=== PATIENT | female | born 1980 | race Hispanic/Latino ===

== ENCOUNTER 2017-09-22 18:02 | Emergency (ER) | payer MEDICARE, MEDICAID ==
[2017-09-22 18:02] VITALS: BMI 38.9
[2017-09-22 18:51] VITALS: RESP 18
--- NOTE | 2017-09-22 19:08 | ED PDOC ---
Arrival/HPI <Yobany Argueta - Last Filed: 09/22/17 22:16> - General Historian: Patient - History of Present Illness Time/Duration: Other (see hpi) Context: Home <CokerAna del cidim P - Last Filed: 09/24/17 17:52> - General Chief Complaint: Shortness Of Breath Time Seen by Provider: 09/22/17 18:24 - History of Present Illness Narrative History of Present Illness (Text): 09/22/17 19:08 This 36 yo female with pmh GERD, COPD/asthma, presents to this ED c/o mid- sternum CP x 3 hours. Patient stated pain worsen with deep inspiration. Patient denies SOB, fever, leg swelling, calf pain, recent travel, recent surgery, blood disorder, weakness, or abnormal gait. PERC negative for PE (CokerAna del cidim P) Past Medical History - Provider Review Nursing Documentation Reviewed: Yes - Cardiac Hx Cardiac Disorders: No - Pulmonary Hx Respiratory Disorders: Yes Hx Asthma: Yes - Neurological Hx Neurological Disorder: No - HEENT Hx HEENT Disorder: No - Renal Hx Renal Disorder: No - Endocrine/Metabolic Hx Endocrine Disorders: No - Hematological/Oncological Hx Blood Disorders: No - Integumentary Hx Dermatological Disorder: No - Musculoskeletal/Rheumatological Hx Musculoskeletal Disorders: No - Gastrointestinal Hx Gastrointestinal Disorders: Yes Hx Gastroesophageal Reflux: Yes - Genitourinary/Gynecological Hx Genitourinary Disorders: No - Psychiatric Hx Psychophysiologic Disorder: No Hx Substance Use: No - Anesthesia Hx Anesthesia: No Hx Anesthesia Reactions: No Hx Malignant Hyperthermia: No <Coker,Nahim P - Last Filed: 09/24/17 17:52> Family/Social History - Physician Review Nursing Documentation Reviewed: Yes Family/Social History: Other (noncontributory) Smoking Status: Never Smoked Hx Alcohol Use: No Hx Substance Use: No <Coker,Nahim P - Last Filed: 09/24/17 17:52> Allergies/Home Meds <Yobany Argueta - Last Filed: 09/22/17 22:16> <CokerNahim P - Last Filed: 09/24/17 17:52> Allergies/Adverse Reactions: Allergies No Known Allergies Allergy (Verified 09/22/17 18:26) Home Medications: Home Meds Medication Instructions Recorded Confirmed Dexlansoprazole [Dexilant] 60 mg PO DAILY 09/21/16 07/02/18 Montelukast [Singulair] 10 mg PO DAILY 12/13/15 09/22/17 Fluticasone/Salmeterol 250/50 1 puff INH DAILY 09/22/17 09/22/17 [Advair Diskus 250/50] Review of Systems - Review of Systems Constitutional: Normal. absent: Fatigue, Weight Change, Fevers, Night Sweats Eyes: Normal ENT: Normal Respiratory: absent: SOB, Cough, Sputum, Wheezing Cardiovascular: Chest Pain. absent: Palpitations, Edema, Calf Pain, BELLO, Orthopnea, Syncope Gastrointestinal: Normal. absent: Abdominal Pain, Nausea, Vomiting Genitourinary Female: Normal Musculoskeletal: Normal Skin: Normal Neurological: Normal Endocrine: Normal Hemo/Lymphatic: Normal Psychiatric: Normal <Coker,Nah P - Last Filed: 09/24/17 17:52> Physical Exam Temperature: Afebrile Blood Pressure: Normal Pulse: Regular Respiratory Rate: Normal Appearance: Positive for: Well-Appearing, Non-Toxic, Comfortable Pain Distress: None Mental Status: Positive for: Alert and Oriented X 3 - Systems Exam Head: Present: Atraumatic, Normocephalic Pupils: Present: PERRL Extroacular Muscles: Present: EOMI Conjunctiva: Present: Normal Mouth: Present: Moist Mucous Membranes Neck: Present: Normal Range of Motion Respiratory/Chest: Present: Clear to Auscultation, Good Air Exchange. No: Respiratory Distress, Accessory Muscle Use, Wheezes, Retracting, Rhonchi Cardiovascular: Present: Regular Rate and Rhythm, Normal S1, S2. No: Murmurs Abdomen: No: Tenderness, Distention, Peritoneal Signs Back: Present: Normal Inspection Upper Extremity: Present: Normal Inspection. No: Cyanosis, Edema Lower Extremity: Present: Normal Inspection. No: Edema Neurological: Present: GCS=15, CN II-XII Intact, Speech Normal Skin: Present: Warm, Dry, Normal Color. No: Rashes Psychiatric: Present: Alert, Oriented x 3, Normal Insight, Normal Concentration <Coker,Nah P - Last Filed: 09/24/17 17:52> Vital Signs Temp Pulse Resp BP Pulse Ox 09/23/17 00:59 98.0 F 80 18 113/67 97 09/22/17 22:00 79 18 113/68 96 07/02/18 20:42 85 18 111/65 96 09/22/17 18:50 98.1 F 89 18 109/61 95 09/22/17 18:33 21 95 Medical Decision Making <Yobany Argueta - Last Filed: 09/22/17 22:16> Re-evaluation Time: 00:34 Reassessment Condition: Re-examined, Improved - Lab Interpretations I have reviewed the lab results: Yes Interpretation: No clinic. lab abnormalty <Antonino Coker - Last Filed: 09/24/17 17:52> ED Course and Treatment: 09/23/17 00:33 Patient feels better. Patient was recommended to f/u pmd, and private healthcare administrator for further evaluation. Troponin x 2 were negative. Re-evaluation. Patient feels better. Discussed results and plan with patient who expresses understanding. All questions answered and there is agreement with the plan to discharge home with instructions. Patient stable for discharge. Return if symptoms persist or worsen. (Antonino Ckoer) - Lab Interpretations Lab Results: 09/22/17 19:20 09/22/17 19:20 Lab Results 09/22/17 23:26: Troponin I < 0.01 09/22/17 20:07: Urine Opiates Screen Negative, Urine Methadone Screen Negative, Ur Barbiturates Screen Negative, Ur Phencyclidine Scrn Negative, Ur Amphetamines Screen Negative, U Benzodiazepines Scrn Negative, U Oth Cocaine Metabols Negative, U Cannabinoids Screen Negative 09/22/17 20:07: Urine Color Yellow, Urine Appearance Sl cloudy, Urine pH 6.5, Ur Specific [place] 1.015, Urine Protein Negative, Urine Glucose (UA) Negative, Urine Ketones Negative, Urine Blood Negative, Urine Nitrate Negative, Urine Bilirubin Negative, Urine Urobilinogen 0.2, Ur Leukocyte Esterase Negative 09/22/17 19:20: Sodium 141, Potassium 4.1, Chloride 102, Carbon Dioxide 26, Anion Gap 17, BUN 20, Creatinine 0.7, Est GFR ( Amer) > 60, Est GFR (Non- Af Amer) > 60, Random Glucose 98, Calcium 9.4, Total Bilirubin 0.3, AST 26, ALT 23, Alkaline Phosphatase 62, Lactate Dehydrogenase 460, Total Creatine Kinase < 20 L, Troponin I < 0.01, Total Protein 7.8, Albumin 4.2, Globulin 3.6, Albumin/ Globulin Ratio 1.2, Lipase 102 09/22/17 19:20: WBC 8.3 D, RBC 4.14, Hgb 12.5, Hct 36.8, MCV 88.9, MCH 30.2, MCHC 34.0, RDW 13.4, Plt Count 374, MPV 10.7, Gran % 77.5 H, Lymph % (Auto) 10.8 L, [place] % (Auto) 10.0 H, Eos % (Auto) 1.1 L, Baso % (Auto) 0.6, Gran # 6.43 , Lymph # (Auto) 0.9 L, [place] # (Auto) 0.8 H, Eos # (Auto) 0.1, Baso # (Auto) 0.05 - RAD Interpretation Radiology Orders: 09/22/17 19:11 CHEST TWO VIEWS (PA/LAT) [RAD] Stat - Medication Orders Current Medication Orders: Discontinued Medications Al Hydrox/Mg Hydrox/Simethicone (Maalox Plus 30 Ml) 30 ml PO STAT STA Stop: 09/22/17 22:18 Last Admin: 09/22/17 23:07 Dose: 30 ml Belladonna/Phenobarbital ( Elixir) 5 ml PO STAT STA Stop: 09/22/17 22:19 Last Admin: 09/22/17 23:07 Dose: 5 ml Sodium Chloride (Sodium Chloride 0.9%) 1,000 mls @ 999 mls/hr IV .Q1H1M STA Stop: 09/22/17 20:12 Last Admin: 09/22/17 19:30 Dose: 999 mls/hr eMAR Start Stop Document 09/22/17 19:30 GMI (Rec: 09/22/17 19:31 GMI [facility] [email or web address]) Intravenous Solution Start Date 09/22/17 Start Time 19:31 Ketorolac Tromethamine (Toradol) 15 mg IVP STAT STA Stop: 09/22/17 19:13 Last Admin: 09/22/17 20:17 Dose: 15 mg MAR Pain Assessment Document 09/22/17 20:17 SURESH (Rec: 09/22/17 20:17 SURESH [id number]) Pain Reassessment Is this a pain reassessment? Yes Presence of Pain Presence of Pain Yes Pain Scale Used Pain Scale Used Numeric Location Pain Location Body Site Chest Description Description Sharp Intensity of Pain at present 8 IVP Administration Document 09/22/17 20:17 SURESH (Rec: 09/22/17 20:17 SURESH [id number]) Charges for Administration # of IVP Administrations 1 Re-Assess: FRANCIA Pain Assessment Document 09/22/17 21:17 LA (Rec: 09/22/17 23:08 LA [id number]) Pain Reassessment Is this a pain reassessment? Yes Sleep Is patient sleeping during reassessment? No Presence of Pain Presence of Pain No - PA / [employer] / Resident Statement /DO has reviewed & agrees with the documentation as recorded. / has examined the patient and agrees with the treatment plan. <Yobany Argueta - Last Filed: 09/22/17 22:16> Disposition/Present on Arrival <Yobany Argueta - Last Filed: 09/22/17 22:16> - Present on Arrival Any Indicators Present on Arrival: No History of DVT/PE: No History of Uncontrolled Diabetes: No Urinary Catheter: No History of Decub. Ulcer: No History Surgical Site Infection Following: None - Disposition Have Diagnosis and Disposition been Completed?: Yes Disposition Time: 00:35 Patient Plan: Discharge <Antonino Coker - Last Filed: 09/24/17 17:52> - Disposition Diagnosis: Non-cardiac chest pain Disposition: HOME/ ROUTINE Condition: IMPROVED Discharge Instructions (ExitCare): Chest Pain That Is Not Caused by the Heart ( [place]) Additional Instructions: Call private doctor for follow up visit in 1-2 days. Take medication as instructed. Return to emergency if symptoms return or worsen Prescriptions: Famotidine [Pepcid] 40 mg PO DAILY #10 tablet Ibuprofen [Motrin] 400 mg PO Q8H PRN #20 tab PRN Reason: Pain, Severe (8-10) Referrals: Yobany Ambrosio MD [Primary Care Provider] - Follow up with primary Karley Watt MD [Staff Provider] - Follow up with primary Forms: [employer] ([place]), WORK NOTE
[2017-09-22] MEDS ORDERED: Sodium Chloride 0.9% 1,000 ML IV STA (19:12)
[2017-09-22 20:00] LABS: ALB/GLOB RATIO 1.2 (1.1-1.8); ALBUMIN 4.2 g/dL (3.0-4.8); BASO # 0.05 K/mm3 (0.0-2.0); BASO % 0.6 % (0.0-3.0); CALCIUM 9.4 mg/dL (8.4-10.5); EOS # 0.1 (0.0-0.7); EOS % 1.1 % (1.5-5.0); GFR AFRICAN-AMERICAN > 60; GFR NON-AFRICAN AMERICAN > 60; GRAN # 6.43 (1.4-6.5); GRAN % 77.5 % (50.0-68.0); HEMOGLOBIN 12.5 g/dL (12.0-16.0); LIPASE 102 U/L (23-300); LYMPH # 0.9 (1.2-3.4); LYMPH % 10.8 % (22.0-35.0); MEAN CELL VOLUME 88.9 fl (80.0-105.0); MEAN CORPUSCULAR HEMOGLOBIN 30.2 pg (25.0-35.0); MEAN PLATELET VOLUME 10.7 fl (7.0-11.0); MONO # 0.8 (0.1-0.6); RBC 4.14 10^6/uL (3.5-6.1); RED CELL DISTRIBUTION WIDTH 13.4 % (11.5-14.5); WHITE BLOOD COUNT 8.3 10^3/ul (4.5-11.0)
[2017-09-22 20:12] LABS: TROPONIN I < 0.01 ng/mL
[2017-09-22 20:17] LABS: PH,URINE 6.5 (4.7-8.0); URINE BILIRUBIN NEGATIVE (NEGATIVE); URINE BLOOD NEGATIVE (NEGATIVE); URINE GLUCOSE (UA) NEGATIVE (NEGATIVE); URINE LEUKOCYTE ESTERASE NEGATIVE Leu/uL (NEGATIVE); URINE PROTEIN NEGATIVE mg/dL (<30 mg/dL); URINE UROBILINOGEN 0.2 E.U./dL (<1 E.U./dL)
[2017-09-22 20:18] LABS: URINE APPEARANCE SL CLOUDY (CLEAR); URINE COLOR YELLOW (YELLOW)
[2017-09-22 20:19] LABS: ALT/SGPT 23 U/L (7-56); AST/SGOT 26 U/L (14-36); BLOOD UREA NITROGEN 20 mg/dL (7-21)
[2017-09-22 20:36] LABS: BARBITURATES, UR NEGATIVE (NEGATIVE); BENZODIAZEPINES, UR NEGATIVE (NEGATIVE); OPIATES, UR NEGATIVE (NEGATIVE); PHENCYCLIDINE, UR NEGATIVE (NEGATIVE)
[2017-09-22] MEDS ORDERED: Alum-Mag Hydrox-Simethicone Susp (30 mL) PO STA (22:17)
[2017-09-22] MEDS ORDERED: Atrop/Hyosc/Scopal/PB Elixir (120 ml) PO STA (22:18)
[2017-09-23 01:00] VITALS: BP 113/67; PULSE 80; TEMP 98; O2SAT 97
--- NOTE | 2017-09-23 08:23 | RAD ---
HISTORY: CP COMPARISON: 08/23/2016 TECHNIQUE: Chest PA and lateral FINDINGS: LUNGS: No active pulmonary disease. PLEURA: No significant pleural effusion identified. No pneumothorax apparent. CARDIOVASCULAR: Normal. OSSEOUS STRUCTURES: Mild thoracic spondylosis VISUALIZED UPPER ABDOMEN: Normal. OTHER FINDINGS: None. IMPRESSION: No active disease. No interval pathology noted.
--- NOTE | 2017-09-23 09:52 | CARD ---
APPROVED REPORT EKG Measurement Heart [id number] <Conclusion> Normal sinus rhythm Cannot rule out Inferior infarct, old Anterior infarct, old No change
== END 2017-09-23 00:59 | disposition home or self-care (01) ==
LOC: ED 18:02
DX: R07.89 Other chest pain (principal); K21.9 Gastro-esophageal reflux disease without esophagitis; J44.9 Chronic obstructive pulmonary disease, unspecified
CPT/HCPCS: 71046; 80053; 81003; 82550; 83615; 83690; 84484; 85025; 93005; 96374; 99283; G0480; J1885; J7030